=== PATIENT | male | born 1990 ===

== ENCOUNTER → 2018-10-19 | Outpatient (CLI) | payer OTHER ==
[~2018-10-19] MED LIST: OXYC-471 PO
[2018-10-19 10:16] LABS: BASOPHILS % (AUTO) 0 % (0-10); EOSINOPHILS # (AUTO) 0.3 10^3/uL (0.0-0.3); EOSINOPHILS % (AUTO) 5 % (0-10); HEMATOCRIT 44 % (40-54); HEMOGLOBIN 15.2 G/DL (13.3-17.7); LYMPHOCYTES # (AUTO) 2.3 X 10^3 (1.0-4.0); LYMPHOCYTES % (AUTO) 34 % (12-44); MEAN CORPUSCULAR HEMOGLOBIN 30 PG (25-34); MEAN CORPUSCULAR HGB CONC 35 G/DL (32-36); MEAN CORPUSCULAR VOLUME 87 FL (80-99); MEAN PLATELET VOLUME 9.6 FL (7.4-10.4); MONOCYTES # (AUTO) 0.7 X 10^3 (0.0-1.0); MONOCYTES % (AUTO) 11 % (0-12); NEUTROPHILS # (AUTO) 3.3 X 10^3 (1.8-7.8); NEUTROPHILS % (AUTO) 50 % (42-75); PLATELET COUNT 209 10^3/uL (130-400); RED CELL DISTRIBUTION WIDTH 13.2 % (10.0-14.5); WHITE BLOOD COUNT 6.7 10^3/uL (4.3-11.0)
[2018-10-19 10:30] LABS: BUN/CREATININE RATIO 13; CALCIUM 9.7 MG/DL (8.5-10.1); CARBON DIOXIDE 22 MMOL/L (21-32); CHLORIDE 107 MMOL/L (98-107); GFR ESTIMATED > 60; GLUCOSE 95 MG/DL (70-105); POTASSIUM 4.3 MMOL/L (3.6-5.0); SODIUM 140 MMOL/L (135-145)
--- NOTE | 2018-10-19 12:37 | Diagnostic Imaging Report ---
EXAMINATION: Right ankle radiographs, 3 views. COMPARISON: None. HISTORY: 28-year-old male, twisting injury. Right ankle pain. FINDINGS: There is a comminuted mildly displaced fracture involving the distal fibula with transverse fracture component at the level of the tibial plafond and oblique fracture component extending superiorly. The distal fracture fragment is displaced laterally by approximately 5 mm. There is also a predominantly transversely oriented displaced fracture involving the base of the medial malleolus with a proximal to distal fracture gap measured at 4 mm. There is also a mildly displaced fracture of the posterior malleolus. There is no large tibiotalar joint effusion. There is no radiographically apparent osteochondral lesion of the talar dome. There is soft tissue swelling adjacent to the medial and lateral malleoli. There is no gross malalignment of the ankle mortise. IMPRESSION: 1. Displaced fractures of the distal fibula at and above the level of the ankle mortise, through the base of the medial malleolus, and of the posterior malleolus. 2. No radiographically apparent osteochondral lesion of the talar dome. 3. No gross malalignment of the ankle mortise. Dictated by: Dictated on workstation # [id number]
== END ==
LOC: EDBD 09:03 → ORTHO 09:03
PROVIDERS: ATTEND Orthopaedic Surgery
DX: S82.851A Displaced trimalleolar fracture of right lower leg, initial encounter for closed fracture (principal); X58.XXXA Exposure to other specified factors, initial encounter
CPT/HCPCS: 36415; 73610; 80048; 85025; 99203

== ENCOUNTER 2018-10-20 05:49 | Outpatient (CLI) | payer OTHER ==
[~2018-10-20] VITALS: Ht 167.6 cm; Wt 77.1 kg
[2018-10-21] MEDS ORDERED: OXYC-471 PO (13:11)
== END 2018-10-20 13:48 | disposition home or self-care (01) ==
LOC: PREOP 05:49
PROVIDERS: ATTEND Orthopaedic Surgery
DX: Z01.818 Encounter for other preprocedural examination (principal)

== ENCOUNTER → 2018-10-25 | Outpatient (CLI) | payer OTHER | LOC: ORTHO 11:50 | PROVIDERS: ATTEND Orthopaedic Surgery | DX: S82.851A Displaced trimalleolar fracture of right lower leg, initial encounter for closed fracture (principal); S93.431A Sprain of tibiofibular ligament of right ankle, initial encounter; X50.1XXA Overexertion from prolonged static or awkward postures, initial encounter | CPT/HCPCS: 29405 ==

== ENCOUNTER → 2018-11-22 | Outpatient (CLI) | payer OTHER ==
--- NOTE | 2018-11-22 09:41 | Diagnostic Imaging Report ---
INDICATION: Followup trimalleolar fracture. COMPARISON: 11/08/2018 and 10/19/2018. TECHNIQUE: 3 radiographs of right ankle dated 11/22/2018. FINDINGS: Screws transfixing the medial malleolus are again identified. Lateral plate and screw fixation of the distal fibula is again seen with associated syndesmotic banding. No evidence of hardware complication. Fracture associated with the medial malleolus is slightly better visualize. Developing periosteal reaction is noted involving the distal tibia and fibula. Alignment appears unchanged. Talar dome is unremarkable. Ankle mortise is symmetric. No new fracture, with posterior malleolar fracture appearing unchanged. IMPRESSION: Internally fixated medial malleolar fracture plane is slightly better visualized than the prior examination. This is favored to relate to resorption and early healing. Recommend continued radiographic followup. Otherwise, slight interval healing of previously noted trimalleolar fracture with alignment remaining stable. Dictated by: Dictated on workstation # [id number]
== END ==
LOC: ORTHO 08:57
PROVIDERS: ATTEND Orthopaedic Surgery
DX: S82.851D Displaced trimalleolar fracture of right lower leg, subsequent encounter for closed fracture with routine healing (principal); X50.1XXD Overexertion from prolonged static or awkward postures, subsequent encounter
CPT/HCPCS: 73610

== ENCOUNTER → 2018-12-07 | Outpatient (CLI) | payer OTHER ==
--- NOTE | 2018-12-07 15:06 | Diagnostic Imaging Report ---
INDICATION: Trimalleolar ankle fracture, followup. TIME OF EXAMINATION: 2:00 PM. COMPARISON: 11/22/2018. TECHNIQUE: Three views of the right ankle were obtained. FINDINGS: A lateral plate and numerous screws transfix the distal fibula. Syndesmotic anchor as well as two partially threaded screws transfixing the medial malleolus are noted. The hardware appears to be intact without fracture or loosening. A lucency through the medial malleolus is similar to the prior exam. The ankle mortise is maintained. The talar dome is smooth. No new fracture is seen. IMPRESSION: Stable appearance to the right ankle when compared with the exam from 11/22/2018. There continues to be a visible fracture line through the medial malleolus. No definite residual fracture of the fibula is seen. Dictated by: Dictated on workstation # [id number]
== END ==
LOC: ORTHO 13:47
PROVIDERS: ATTEND Orthopaedic Surgery
DX: S82.851D Displaced trimalleolar fracture of right lower leg, subsequent encounter for closed fracture with routine healing (principal)
CPT/HCPCS: 73610

== ENCOUNTER → 2018-12-29 | Outpatient (CLI) | payer OTHER ==
--- NOTE | 2018-12-29 10:34 | Diagnostic Imaging Report ---
EXAMINATION: Right ankle radiographs, 3 views. COMPARISON: December 07, 2018. HISTORY: 28-year-old male, followup trimalleolar fracture of the right ankle. FINDINGS: There is sideplate and screw fixation hardware along the distal fibula. The hardware appears intact without abnormal surrounding lucency. There is no clearly visualized residual fracture line in the fibula. There are medial malleolar lag screws present. There is a minimally displaced obliquely oriented fracture extending through the base of the medial malleolus. There does not appear to be complete healing at this fracture site with a persistent visible fracture line. There is hardware related material at the level of the medial aspect of the distal tibial metaphysis. There is productive bone formation in the region of the syndesmosis likely relating to remote prior syndesmotic injury. There is a mild deformity of the posterior malleolus with interval bony callus bridging and healing response. There is no tibiotalar joint effusion. The alignment of the ankle mortise is unremarkable. IMPRESSION: 1. Intact hardware without apparent complication. 2. Interval healing of the distal fibular and posterior malleolar fractures with a persistent residual fracture line identified in the medial malleolus without pronounced interval bony callus bridging. There is no complete healing at the site of the medial malleolar fracture at the current time. 3. Evidence of remote prior syndesmotic injury. 4. Normal alignment of the ankle mortise. No tibiotalar joint effusion. Dictated by: Dictated on workstation # [id number]
== END ==
LOC: ORTHO 08:50
PROVIDERS: ATTEND Orthopaedic Surgery
DX: S82.851D Displaced trimalleolar fracture of right lower leg, subsequent encounter for closed fracture with routine healing (principal); X50.1XXD Overexertion from prolonged static or awkward postures, subsequent encounter
CPT/HCPCS: 73610

== ENCOUNTER → 2019-01-21 | Outpatient (CLI) | payer OTHER | LOC: ORTHO 08:54 | PROVIDERS: ATTEND Orthopaedic Surgery | DX: S82.851D Displaced trimalleolar fracture of right lower leg, subsequent encounter for closed fracture with routine healing (principal); X50.1XXD Overexertion from prolonged static or awkward postures, subsequent encounter ==

== ENCOUNTER 2019-02-23 14:11 | Outpatient (RCR) | payer OTHER | END 2019-03-17 10:28 | disposition home or self-care (01) | PROVIDERS: ATTEND Orthopaedic Surgery | DX: S82.851D Displaced trimalleolar fracture of right lower leg, subsequent encounter for closed fracture with routine healing (principal); X50.1XXD Overexertion from prolonged static or awkward postures, subsequent encounter ==